=== PATIENT | female | born 1970 | race Caucasian/White ===

== ENCOUNTER → 2020-08-05 | Outpatient (CLI) | payer OTHER ==
[2020-08-05 07:54] LABS: BASO % 0.7 % (0.0-1.0); EOS # 0.1 10*3/uL (0.0-0.4); EOS % 1.8 % (1.0-4.0); HEMATOCRIT 46.7 % (37.0-47.0); LYMPH # 1.1 10*3/uL (1.3-4.4); LYMPH % 18.9 % (27.0-41.0); MEAN CELL VOLUME 96.5 fl (81.0-99.0); MEAN CORPUSCULAR HGB 30.8 pg (27.0-31.0); MEAN CORPUSCULAR HGB CONC 31.9 g/dl (33.0-37.0); MEAN PLATELET VOLUME 10.7 fl (9.6-12.3); MONO # 0.5 10*3/uL (0.1-1.0); MONO % 8.1 % (3.0-9.0); NEUT # 4.2 10*3/uL (2.3-7.9); NEUT % 70.3 % (47.0-73.0); PLATELET COUNT AUTOMATED 247 10*3/uL (130-400); RED BLOOD COUNT 4.84 10*6/uL (4.10-5.10); RED CELL DISTRI WIDTH 12.8 % (0-14.5)
[2020-08-05 08:14] LABS: ALBUMIN 3.5 gm/dl (3.1-4.5); ALKALINE PHOSPHATASE 49 U/L (45-117); BUN 14 mg/dl (7-24); CHLORIDE 111 mmol/L (98-107); CHOLESTEROL 231 mg/dL (<200); CREATININE 0.89 mg/dL (0.55-1.02); LDL CHOLESTEROL 152 mg/dL (9-159); POTASSIUM 3.6 mmol/L (3.5-5.1); SGOT/AST 14 IU/L (3-35); SGPT/ALT 21 U/L (12-78); SODIUM 141 mmol/L (136-145); TOTAL PROTEIN 6.9 gm/dL (6.4-8.2); TRIGLYCERIDES 98 mg/dl (<150)
== END | disposition home or self-care (01) ==
LOC: LAB 07:30
PROVIDERS: ATTEND Family Medicine
DX: Z00.01 Encounter for general adult medical examination with abnormal findings (principal)